=== PATIENT | male | born 1960 | race African-American/Black ===

== ENCOUNTER 2016-06-22 12:52 | Inpatient (IN) | payer MEDICARE, OTHER ==
--- NOTE | ~2016-06-22 | PN ---
Unit #: [id number] #: [id number] Patient: ZAHEER JARAMILLO SR [id number] [facility] [address] [place] [address] [id number] MR#: [id number] NAME: ZAHEER JARAMILLO SR ROOM: P210 Age: 56 Sex: M Admission Date: 06/22/2016 : 1960 Attending Physician: Chaim Mcmahon M.D. Admitting Physician: Chaim Mcmahon M.D. Primary Care Physician: Tootie Patel [facility] PROGRESS NOTES DATE 06/28/2016 DISCUSSION The patient is a bit less hopeless today and states that he hopes to go to "[facility]" upon discharge. We will watch for one further day so that these arrangements can be made but I have told the patient to expect a.m. discharge. Dictated by... Chaim Mcmahon M.D. CB/hannah TD: 06/28/2016 15:29 JOB #: [id number] [facility] PROGRESS NOTES X Chaim Mcmahon MD PROGRESS NOTE
--- NOTE | ~2016-06-22 | PN ---
Unit #: [id number] #: [id number] Patient: ZAHEER JARAMILLO SR [id number] [place] [address] [id number] I MR#: [id number] NAME: ZAHEER JARAMILLO SR ROOM: [facility] Age: 56 Sex: M Admission Date: 06/22/2016 : 1960 Attending Physician: Chaim Mcmahon M.D. Admitting Physician: Chaim Mcmahon M.D. Primary Care Physician: Tootie Patel [facility] PROGRESS NOTES DATE 06/29/2016 DISCUSSION The patient is in the bed resting comfortably today. It is our hope that he will be able to leave for residential chemical dependence school diagnosis/treatment as early as tomorrow. Dictated by... Chaim Mcmahon M.D. CB/to TD: 06/30/2016 15:38 JOB #: [id number] [facility] PROGRESS NOTES X Chaim Mcmahon MD PROGRESS NOTE
--- NOTE | ~2016-06-22 | DS ---
Unit #: [id number] #: [id number] Patient: ZAHEER JARAMILLO [id number] [place] [address] [id number] I MR#: [id number] NAME: ZAHEER JARAMILLO SR ROOM: P210 Age: 56 Sex: M Admission Date: 06/22/2016 : 1960 Discharge Date: 07/01/2016 Attending Physician: Chaim Mcmahon M.D. Primary Care Physician: Tootie Patel Family DISCHARGE SUMMARY REASON FOR ADMISSION The patient is a 55-year-old homeless male with a history of opioid dependence, admitted for detox and referral for residential treatment. HOSPITAL COURSE The patient was admitted to the [address] [place] [address] unit and placed on suicide precautions. He was placed on a CIWA protocol related to his history of alcohol dependence. The patient's participation within the therapeutic milieu left much to be desired; however, he did agree with plans for residential chemical dependency treatment to take place at a facility in [place], and discharge to that facility was ordered on 07/02/2016. FINAL DIAGNOSES Bipolar disorder, depressed phase by history; cocaine use disorder; alcohol use disorder. DISPOSITION ON DISCHARGE The patient is discharged on the following medications; Seroquel 100 mg at bedtime for mood stabilization. DISCHARGE INSTRUCTIONS No dietary or physical restrictions were placed on the patient at the time of discharge. FOLLOWUP Followup will take place through the auspices of "[facility]." PROGNOSIS The patient's prognosis is considered fair. Dictated by... Chaim Mcmahon M.D. CB/junior TD: 07/02/2016 01:52 JOB #: [id number] Unit #: [id number] #: [id number] Patient: ZAHEER JARAMILLO SR DISCHARGE SUMMARY X Chaim Mcmahon MD X DISCHARGE SUMMARY
--- NOTE | ~2016-06-22 | PA ---
Unit #: [id number] #: [id number] Patient: ZAHEER JARAMILLO SR [id number] [place] [address] [id number] MR#: [id number] NAME: ZAHEER JARAMILLO SR ROOM: P210 Age: 55 Sex: M Admission Date: 06/22/2016 : 1960 Date of Assessment: 06/23/2016 Attending Physician: Chaim Mcmahon M.D. Admitting Physician: Chaim Mcmahon M.D. [facility] PSYCHIATRIC ASSESSMENT IDENTIFYING INFORMATION The patient is a 55-year-old male last admitted to this facility in April of this year. He is readmitted with depressed mood, suicidal ideation and alcohol and cocaine abuse. INFORMANT(S) The patient, reliability is fair. CHIEF COMPLAINT "I couldn't take it anymore." HISTORY OF PRESENT ILLNESS The patient is a 55-year-old male last admitted to this facility under the care of Dr. Gutierrez in April of this year. The patient reports that he has been homeless for two years and has been abusing alcohol and cocaine more rigorously lately. He reports as a result he has been having suicidal ideation with thoughts of overdosing. The patient caries a diagnosis of bipolar spectrum disorder and had during his care under Dr. Gutierrez had been taking Zoloft and Depakote though he has been noncompliant with these medications. The patient continues to endorse positive suicidal ideation when seen today. He denies any history of intravenous drug use. The patient reports that he is and and he completed only the sixth grade. For more complete history of present illness please refer to previous dictated notes. PAST PSYCHIATRIC HISTORY Reviewed no changes. PAST MEDICAL HISTORY Reviewed no changes. MEDICATIONS None at this time. ALLERGIES None. FAMILY HISTORY Noncontributory. SOCIAL HISTORY Unit #: [id number] #: [id number] Patient: ZAHEER JARAMILLO The patient is from the [place] area. He completed the sixth grade. He is and . He reports substance use as noted previously and is a smoker. MENTAL STATUS EXAMINATION At this time reveals the patient to be a well-developed, well-nourished male appearing his stated age. He is in no apparent physical distress at the time of examination. He is awake, alert, and oriented in all spheres. His mood is dysphoric. His affect flat. Speech is generally relevant and coherent. There are no gross deficits in memory or cognition noted. Intelligence is judged to be in the average range based on fund of knowledge. The patient is cooperative throughout the interview. He is currently endorsing positive suicidal ideation. He denies homicidal ideation. He denies any psychotic symptoms. His judgment and insight appear to be reasonably intact. No signs or substance withdrawal are immediately evident. ASSETS AND LIABILITIES ASSETS: To be assessed. LIABILITIES: Lack of resources. DIAGNOSTIC IMPRESSION 1. Bipolar disorder depressed phase. 2. Cocaine use disorder. 3. Alcohol disorder. PSYCHIATRIC PLAN/TREATMENT GOALS The patient remains hospitalized for safety and stabilization. A routine detoxification protocol of alcohol was initiated. I will begin Seroquel, monotherapy to address the patient's complaints of depressed mood in the context of a bipolar history. ESTIMATED LENGTH OF STAY Five to seven days with followup to take place through the auspices of community mental health resources. I will ask the patient's psychiatric social worker to see him regarding possible [facility] or residential chemical dependence treatment. Dictated by... Chaim Mcmahon M.D. CB/fartun TD: 06/24/2016 00:49 JOB #: [id number] Unit #: [id number] #: [id number] Patient: ZAHEER JARAMILLO SR PSYCHIATRIC ASSESSMENT X Chaim Mcmahon MD X PSYCHIATRIC ASSESSMENT
--- NOTE | ~2016-06-22 | PN ---
Unit #: [id number] #: [id number] Patient: ZAHEER JARAMILLO SR [id number] [facility] [address] [place] [address] [id number] I MR#: [id number] NAME: ZAHEER JARAMILLO SR ROOM: P210 Age: 56 Sex: M Admission Date: 06/22/2016 : 1960 Attending Physician: Chaim Mcmahon M.D. Admitting Physician: Chaim Mcmahon M.D. Primary Care Physician: Tootie Patel [facility] PROGRESS NOTES DATE 06/29/2016 DISCUSSION The patient states that he remains hopeless related to his homeless situation but states that he has spoken with social media editor about possible residential chemical dependence treatment given the patient's ongoing hopelessness and threats of suicide. I will continue his hospitalization at this point. Dictated by... Chaim Mcmahon M.D. CB/hannah TD: 06/29/2016 14:56 JOB #: [id number] [facility] PROGRESS NOTES X Chaim Mcmahon MD PROGRESS NOTE
--- NOTE | ~2016-06-22 | HP ---
Unit #: [id number] #: [id number] Patient: ZAHEER JARAMILLO [id number] [place] [address] [id number] I MR#: [id number] NAME: ZAHEER JARAMILLO SR ROOM: P210 Age: 55 Sex: M Admission Date: 06/22/2016 : 1960 Attending Physician: Chaim Mcmahon M.D. Admitting Physician: Chaim Mcmahon M.D. Primary Care Physician: Tootie Patel Family HISTORY AND PHYSICAL HISTORY OF PRESENT ILLNESS The patient is a 55-year-old male admitted to [address] [place] [address] on 06/22/2016 for suicidal ideations. PAST MEDICAL HISTORY 1. Hypertension 2. Hyperlipidemia 3. History of FL 4. History of stroke PAST SURGICAL HISTORY Right hand. SOCIAL HISTORY The patient is disabled and homeless. He drinks a six pack of alcohol per day and uses crack cocaine occasionally. FAMILY MEDICAL HISTORY Noncontributory. ALLERGIES No known drug allergies. CURRENT MEDICATIONS The patient is not on any home medications. REVIEW OF SYSTEMS CONSTITUTIONAL: No fever or chills. HEENT: Denies any sore throat, ear pain or runny nose. CARDIOVASCULAR: Denies chest pain, irregular heart rhythm or palpitations. CHEST: Denies shortness of breath or cough. No hemoptysis. GASTROINTESTINAL: Denies nausea, vomiting, diarrhea or chronic constipation. ENDOCRINE: Denies history of increased thirst or urination. No recent significant weight loss or gain. GENITOURINARY: Denies dysuria, frequency, or hematuria. SKIN: Denies any rashes. HEMATOLOGIC: Denies history of increased bleeding or bruising. MUSCULOSKELETAL: Denies any hot, swollen joints. No generalized muscle pain. NEUROLOGIC: Denies problems with vision or speech. No frequent, severe headaches. No numbness, tingling or weakness in any extremities. Denies loss of bladder or bowel control. Unit #: [id number] #: [id number] Patient: ZAHEER JARAMILLO SR PHYSICAL EXAM GENERAL: He is awake, alert and oriented in no acute distress. VITAL SIGNS: Temperature 98.2, heart rate 69, respiration 17, blood pressure 133/88. HEIGHT: 6'1". WEIGHT: 214 pounds. SKIN: Warm and dry without rash or lesion. HEENT: Normocephalic. TMs not viewed. Oral and nasal passages clear. Conjunctivae clear. PERRLA. EOMs intact. NECK: Supple without lymphadenopathy or thyromegaly. HEART: Regular rate and rhythm without murmur. LUNGS: Clear. ABDOMEN: Soft, nontender. : Not done. EXTREMITIES: No evidence of cyanosis, clubbing or edema. Moves all without focal deficit. NEUROLOGICAL: Grossly within normal limits. Cranial Nerves: II: Visual buchanan are intact. III, IV AND : Extraocular movements are intact. Pupils are equal, round and reactive to light. V: Facial sensation is grossly normal. VII: Facial movements and expression are normal. VIII: Auditory acuity grossly intact. IX, X: Uvula is midline. Phonation is normal. XI: Patient shrugs shoulders and turns head normally. XII: Tongue protrudes in the midline. Sensory and Motor Function: Sensory and motor sensation is grossly normal. Motor: moves all extremities well. IMPRESSION 1. Psychiatric admission. 2. Hypertension. 3. Hyperlipidemia. 4. History of FL and stroke. RECOMMENDATIONS Psychiatric per psychiatrist. MEDICAL: No contraindication to participate in facility activities. MEDICAL PROGNOSIS Good. MEDICAL CONDITION Stable. Dictated by... Bushra Matute/fartun TD: 06/23/2016 22:51 JOB #: [id number] Unit #: [id number] #: [id number] Patient: ZAHEER JARAMILLO SR HISTORY AND PHYSICAL X HERVE NGUYEN APRN X HISTORY AND PHYSICAL
--- NOTE | ~2016-06-22 | PN ---
Unit #: [id number] #: [id number] Patient: ZAHEER JARAMILLO SR [id number] [place] [address] [id number] I MR#: [id number] NAME: ZAHEER JARAMILLO SR ROOM: [facility] Age: 55 Sex: M Admission Date: 06/22/2016 : 1960 Attending Physician: Chaim Mcmahon M.D. Admitting Physician: Chaim Mcmahon M.D. Primary Care Physician: Tootie Patel [facility] PROGRESS NOTES DATE 06/24/2016 DISCUSSION The patient is in bed resting comfortably. His detox continues uneventfully. clerical warehouse worker will see the patient regarding possible residential chemical dependence treatment or custodial house referral. Dictated by... Chaim Mcmahon M.D. CB/fartun TD: 06/24/2016 20:12 JOB #: [id number] [facility] PROGRESS NOTES X Chaim Mcmahon MD PROGRESS NOTE
--- NOTE | ~2016-06-22 | PN ---
Unit #: [id number] #: [id number] Patient: ZAHEER JARAMILLO SR [id number] [facility] [address] [place] [address] [id number] I MR#: [id number] NAME: ZAHEER JARAMILLO SR ROOM: [facility]0 Age: 56 Sex: M Admission Date: 06/22/2016 : 1960 Attending Physician: Chaim Mcmahon M.D. Admitting Physician: Chaim Mcmahon M.D. Primary Care Physician: Tootie Patel [facility] PROGRESS NOTES DATE 06/27/2016 DISCUSSION The patient is gently but firmly confronted today regarding his past contacts with social work when in fact he has been denying social work contact. The patient's disposition options are discussed with the patient and his social work coordinator, and he is told to expect a.m. discharge. Dictated by... Chaim Mcmahon M.D. CB/roxi TD: 06/27/2016 15:03 JOB #: [id number] [facility] PROGRESS NOTES X Chaim Mcmahon MD PROGRESS NOTE
--- NOTE | ~2016-06-22 | PN ---
Unit #: [id number] #: [id number] Patient: ZAHEER JARAMILLO SR [id number] [facility] [address] [place] [address] [id number] MR#: [id number] NAME: ZAHEER JARAMILLO SR ROOM: P210 Age: 56 Sex: M Admission Date: 06/22/2016 : 1960 Attending Physician: Chaim Mcmahon M.D. Admitting Physician: Chaim Mcmahon M.D. Primary Care Physician: Tootie Patel [facility] PROGRESS NOTES DATE 06/26/2016 DISCUSSION The patient remains dysphoric and flat, continues to report positive suicidal ideation, he claims not to have seen a social science teacher yet and I find this rather doubtful. I have, however, reordered to contact with the patient's social science teacher as his detox continues uneventfully. Dictated by... Ernestina Vazquez TD: 06/26/2016 13:20 JOB #: [id number] [facility] PROGRESS NOTES X Chaim Mcmahon MD PROGRESS NOTE
--- NOTE | ~2016-06-22 | PN ---
Unit #: [id number] #: [id number] Patient: ZAHEER JARAMILLO [id number] [facility] [address] [place] [address] [id number] I MR#: [id number] NAME: ZAHEER JARAMILLO SR ROOM: P210 Age: 56 Sex: M Admission Date: 06/22/2016 : 1960 Attending Physician: Chaim Mcmahon M.D. Admitting Physician: Chaim Mcmahon M.D. Primary Care Physician: -[facility] PROGRESS NOTES DATE 06/25/2016 DISCUSSION The patient remains seclusive to room and continues to complain of symptoms of alcohol withdrawal. She remains dysphoric and states he has had little contact with his social media developer. I suggested that he attempt to increase his contact in terms of beginning to formulate some sort of post discharge treatment plan. He continues to endorse positive suicidal thinking. Dictated by... Chaim Mcmahon M.D. CB/fartun TD: 06/25/2016 22:40 JOB #: [id number] [facility] PROGRESS NOTES X Chaim Mcmahon MD PROGRESS NOTE
[2016-06-23 12:37] LABS: BASOPHIL# 0.1 X10e3 (0-0.3); BASOPHIL% 0.9 % (0-2.5); EOSINOPHIL# 0.4 X10e3 (0-0.7); EOSINOPHIL% 6.3 % (0.0-7.0); HEMATOCRIT 42.5 % (38.0-50.0); LYMPHOCYTE# 1.7 X10e3 (1.0-3.5); LYMPHOCYTE% 30.2 % (17.0-45.0); MEAN CELL VOLUME 84.3 FL (83-96); MEAN CORPUSCULAR HEMOGLOBIN 27.7 PG (28-34); MEAN CORPUSCULAR HGB CONC 32.9 g/dL (30-36); MEAN PLATELET VOLUME 9.5 FL (6.5-11.5); MONOCYTE# 0.4 X10e3 (0-1.0); MONOCYTE% 6.7 % (3.0-12.0); NEUTROPHIL# 3.2 X10e3 (1.5-7.1); NEUTROPHIL% 55.9 % (40-75); PLATELET COUNT 215 X10e3 (140-420); RED BLOOD COUNT 5.04 X10e (3.90-5.60); RED CELL DISTRIBUTION WIDTH 14.3 % (11.0-15.5); WHITE BLOOD COUNT 5.8 X10e3 (4.0-10.5)
[2016-06-23 12:41] LABS: DIFF IND NO
[2016-06-23 12:56] LABS: ALBUMIN SERUM 3.7 g/dL (3.5-5.0); ALKALINE PHOSPHATASE 94 U/L (32-92); ALT (SGPT) 15 U/L (10-40); AST (SGOT) 20 U/L (10-42); BILIRUBIN,TOTAL 0.7 mg/dL (0.2-2.0); BLOOD UREA NITROGEN 18 mg/dL (9-23); BUN/CREATININE RATIO 13.84; CARBON DIOXIDE 26 mmol/L (22-31); CHLORIDE 105 mmol/L (100-111); CREATININE SERUM 1.3 mg/dL (0.6-1.4); GLOM FILT RATE Estimated ABOVE60 mL/min (>60); GLUCOSE FASTING 147 mg/dL (70-110); POTASSIUM 3.8 mmol/L (3.5-5.1); PROTEIN TOTAL SERUM 6.6 g/dL (6.0-8.3); SODIUM 138 mmol/L (135-145)
[2016-06-23 13:06] LABS: THYROID STIMULATING HORMONE 1.3 uIU/ml (0.34-5.60)
[2016-06-23 13:16] LABS: FREE THYROXIN (T4) 0.82 ng/dL (0.58-1.64)
== END 2016-07-01 15:55 | disposition home or self-care (01) | DRG 885 ==
LOC: P2S 12:52 → POF 07-01 14:01 → P2S 07-01 14:08
PROVIDERS: Specialist
PROC: HZ2ZZZZ Detoxification Services for Substance Abuse Treatment (ICD-10-PCS; principal; 2016-06-22)
DX: F31.30 Bipolar disorder, current episode depressed, mild or moderate severity, unspecified (principal); F14.20 Cocaine dependence, uncomplicated; F10.20 Alcohol dependence, uncomplicated
CPT/HCPCS: 80053; 84439; 84443; 85025; 86592